=== PATIENT | female | born 1980 | race Caucasian/White ===

== ENCOUNTER 2018-12-06 20:04 | Emergency (ER) | payer MEDICAID ==
[~2018-12-06] VITALS: Ht 165.1 cm; Wt 90.7 kg
[2018-12-06 20:11] VITALS: BP_SYST 145
--- NOTE | 2018-12-06 20:17 | NUR ---
Note aric in EDM - 12/06/18 at 2018 by DELIA Patient to ER bed 8 for evaluation. Report given to
--- NOTE | 2018-12-06 20:18 | NUR ---
Patient to ER bed 6 for evaluation. Side rails up. Report given to Kristi.
--- NOTE | 2018-12-06 20:24 | NUR ---
ER Dr. Garcia at bedside examining patient.
--- NOTE | 2018-12-06 20:26 | NUR ---
Pt came to the ED for lower ABD pain which started about 4-5 days ago but it has gotten progressively worse today. Pt notes that she has been having lower back pain on the L side. Reported to have history of UTIs. Has taken ibuprofen for the pain with some relief. Denies n/v/d or fever. NKDA. No other complaints/injuries noted. Will cont. to monitor.
[2018-12-06 20:48] LABS: BILIRUBIN,URINE NEGATIVE (NEGATIVE); CLARITY/URINE CLEAR (CLEAR); COLOR,URINE YELLOW (YELLOW); GLUCOSE,URINE NEGATIVE (NEGATIVE); KETONES,URINE NEGATIVE (NEGATIVE); LEUKOCYTE ESTERASE ,URINE NEGATIVE (NEGATIVE); NITRITE, URINE NEGATIVE (NEGATIVE); PROTEIN URINE NEGATIVE (NEGATIVE); UROBILINOGEN,URINE 0.2 (0.2-1.0)
[2018-12-06 20:53] LABS: BLOOD, URINE TRACE (NEGATIVE)
[2018-12-06 20:59] LABS: BACTERIA,URINE RARE /HPF (None Seen); MUCUS,URINE 2+ /LPF (None Seen); RBC,URINE 0-3 /HPF (0-3); WBC,URINE 0-3 /HPF (0-3)
[2018-12-06] MEDS ORDERED: SULFAMETHOXAZOLE/TRIMETHOPR DS 1 TABLET PO ONE (21:00)
--- NOTE | 2018-12-06 21:02 | NUR ---
Pt medciated with bactrim PO per MD order. Tolerated well. Will cont. to monitor.
[2018-12-06 21:15] VITALS: BP_SYST 145
--- NOTE | 2018-12-06 21:15 | NUR ---
Patient given written and verbal discharge instructions and verbalizes understanding. ER MD Dr. Garcia discussed with patient the results and treatment provided. Patient in stable condition. ID arm band removed. Rx of bactrim given. Patient educated on pain management and to follow up with PMD within 2-3 days. Pain Scale 0/10. Opportunity for questions provided and answered. Medication side effect fact sheet provided.
== END 2018-12-06 21:15 | disposition home or self-care (01) ==
LOC: SED 20:04
DX: N39.0 Urinary tract infection, site not specified (principal); R03.0 Elevated blood-pressure reading, without diagnosis of hypertension; Z90.710 Acquired absence of both cervix and uterus
CPT/HCPCS: 81000-TC; 81025; 99283